=== PATIENT | male | born 1985 | race Caucasian/White ===

== ENCOUNTER 2020-12-15 09:18 | Inpatient (IN) | payer OTHER ==
[~2020-12-15] VITALS: Ht 167.6 cm; Wt 65.8 kg
[2020-12-15] MEDS ORDERED: ALEVE220 MG PO (14:34)
[2020-12-15 18:46] LABS: HEMOGLOBIN 13.5 gm/dl (14.0-17.5); RED BLOOD COUNT 4.36 M/UL (4.20-5.50)
[2020-12-15 19:03] LABS: BUN/CREATININE RATIO 16 (0-10)
[2020-12-16 05:42] LABS: HEMOGLOBIN 11.4 gm/dl (14.0-17.5); RED BLOOD COUNT 3.61 M/UL (4.20-5.50); WHITE BLOOD COUNT 13.6 K/UL (4.5-11.0)
[2020-12-16 06:05] LABS: BUN/CREATININE RATIO 17 (0-10)
[2020-12-17 03:48] LABS: HEMOGLOBIN 9.9 gm/dl (14.0-17.5); WHITE BLOOD COUNT 11.4 K/UL (4.5-11.0)
[2020-12-17 03:54] LABS: RED BLOOD COUNT 3.17 M/UL (4.20-5.50)
[2020-12-17] MEDS ORDERED: ENOXAPARIN40 MG/0.4 SC (09:30)
[2020-12-17 20:13] LABS: HEMOGLOBIN 10.4 gm/dl (14.0-17.5); RED BLOOD COUNT 3.31 M/UL (4.20-5.50); WHITE BLOOD COUNT 10.4 K/UL (4.5-11.0)
[2020-12-18] MEDS ORDERED: OXYCODONE HCL5 MG PO (16:24)
== END 2020-12-18 17:23 | disposition home or self-care (01) | DRG 481 ==
LOC: ER1 09:18 → CDU 12:00 → M/S 12:00
PROVIDERS: Orthopaedic Surgery; Physician Assistant Medical; ADMIT Internal Medicine
PROC: 0QS604Z Reposition Right Upper Femur with Internal Fixation Device, Open Approach (ICD-10-PCS; principal; 2020-12-15 15:00)
DX: S72.001A Fracture of unspecified part of neck of right femur, initial encounter for closed fracture (principal); R65.10 Systemic inflammatory response syndrome (SIRS) of non-infectious origin without acute organ dysfunction; D62 Acute posthemorrhagic anemia; Z20.822 Contact with and (suspected) exposure to COVID-19; F17.210 Nicotine dependence, cigarettes, uncomplicated; F17.220 Nicotine dependence, chewing tobacco, uncomplicated; D72.829 Elevated white blood cell count, unspecified; R50.82 Postprocedural fever; W19.XXXA Unspecified fall, initial encounter; Y93.89 Activity, other specified; Y92.89 Other specified places as the place of occurrence of the external cause; Z82.49 Family history of ischemic heart disease and other diseases of the circulatory system
CPT/HCPCS: 36415; 71045; 73502; 73552; 73700; 76000; 80048; 83735; 85025; 85027; 87040; 96374; 96375; 96376; 97116; 97116-GP-CQ; 97161; 97166; 97530-GP-CQ; 97535; 99285; C1713; J0690; J1170; J1650; J1885; J2001; J2250; J2270; J2405; J2704; J2710; J3010; J7030; J7040; J7120; U0002